=== PATIENT | male | born 1940 | race Caucasian/White ===

== ENCOUNTER 2025-05-07 16:00 | Emergency (ER) | payer MEDICARE, SELFPAY ==
--- NOTE | ~2025-05-07 | XR_ITS ---
XR chest 2V 05/07/2025 16:45 Indication: Cough and shortness of breath Procedure: 2 view chest Comparison: No prior studies for comparison. Findings: Heart size normal. No focal air space disease, pulmonary edema, pleural effusion or suspected pneumothorax. There is nodular opacity overlying the right upper thorax which may represent a summation shadow or parenchymal nodule. The lungs are hyperinflated which is consistent with, but not diagnostic of chronic obstructive pulmonary disease. Impression: 1: No acute cardiopulmonary disease. 2: Nodular opacity right upper thorax which may represent summation shadow parenchymal nodule. Consider follow-up CT chest on a nonemergent basis. Reviewed, dictated and finalized at location O. Impression: 1: No acute cardiopulmonary disease. 2: Nodular opacity right upper thorax which may represent summation shadow pare nchymal nodule. Consider follow-up CT chest on a nonemergent basis.
--- OUTSIDE RECORDS SUMMARY | 2025-05-07 16:08 | XMS_ITS | Encounter Summary ---
Author Organization [facility] Healthcare Address [address] [place] [address] Care Team Providers Care Welder First Class Name Role Phone Dion Esquivel MD Primary Care Provider [phone] Kevin Lynch MD Unavailable [phone] Reason for Visit * Reason Onset Date Comments Dizziness 05/07/2025 Encounter Details Date Type Department Care Team (Late st Contact Info) Description 05/07/2025 Nurse Triage [facility] [address] [facility] [employer] [address] Dion Esquivel MD [address] [place] [address] Social History Tobacco Use Types Packs/Day Years Used Date Smoking Tobacco: Former Cigarettes 2 - 1987 Smokeless Tobacco: Former Chew Quit: 2000 Comments:Smoking History Pac ks/day: 1 Packs Alcohol Use Standard Drinks/Week Comments No 0 (1 standard drink = 0.6 oz pur e alcohol) [facility] Utilities Answer Date Recorded In the past 12 months has [employer], gas, oil, or water [employer] threatened to shut off services in your home? No 11/24/2023 Social Connection and Isolation Panel Answer Date Recorded In a typical week, how many times do you talk on the phone with family, friends, or neighbors? More than three times a week 11/24/2023 How often do you get togethe r with friends or relatives? More than three times a week 11/24/2023 How often do you attend [facility] or christianity services? More than 4 times per year 11/24/2023 Do you belong to any clubs o r organizations such as catholic groups, unions, fraternal or athletic groups, or school groups? No 11/24/2023 How often do you attend meet ings of the clubs or organizations you belong to? Never 11/24/2023 Are you , , di vorced, , never , or living with a partner? 11/24/2023 Overall Financial Resource Strain (CARDIA) Answe r Date Recorded How hard is it for you to pa y for the very basics like food, housing, medical care, and heating? Not very hard 11/24/2023 PHQ-2 Answer Date Recorded PHQ-2 Total Score (If total score is 3 or more points, staff should administer the PHQ-9) 0 12/17/2024 Hunger Vital Sign Answer Date Recorded Within the past 12 months, y ou worried that your food would run out before you got the money to buy more. Never true 11/24/19 24 Within the past 12 months, t he food you bought just didn't last and you didn't have money to get more. Never true 11/24/2023 PRAPARE - Transportation Answer Date Re corded In the past 12 months, has l ack of transportation kept you from medical appointments or from getting medications? No 11/12 In the past 12 months, has l ack of transportation kept you from meetings, work, or from getting things needed for daily living? No 11/24/2023 Housing Stability Vital Sign Answer Grover e Recorded In the last 12 months, was t here a time when you were not able to pay the mortgage or rent on time? No 11/24/2023 In the last 12 months, how many places have you lived? 1 11/24/2023 In the last 12 months, was t here a time when you did not have a steady place to sleep or slept in a prison (including now)? No 11/24/2023 Personal Safety Answer Date Recorded Have you ever been in or are you currently in a harmful physical or emotional relationship or is someone making you feel afraid or unsafe? Denies 11/20/2023 Sex and Gender Information Value Date Recorded Sex Assigned at Not on file Legal Sex Male 11:50 PM STOCK TRADER Gender Identity Not on file Sexual Orientation Not on file documented as of this encounter Miscellaneous Notes * Telephone Encounter - Yuliya Martin RN - 05/07/2025 10:17 AM CDT Reason for Conversation Dizziness Background Pt granddaughter calls , not on HIPAA, pt was added to the call. Pt reports blurry vision at this time, pt states she has been having blurry vision at times for thelast couple of days. Pt also reports feeling dizzy but not in a room is spinning sense. Patient reports he has been having pain in the top of his head for a couple of weeks that comes and goes but recently is getting worse.Pt states he feels he is getting sick, runny nose, congested. Denies confusion, numbness or weakness. Pt has a hx in 2023 of hydrocephalus. Provider contacted via secure chat for ED disposition consult. Recommendation from provider:Proceed to ED Call back with further needs. Disposition Go to ED/UCC Now (or to Office With PCP Approval) Reason for Disposition Patient sounds very sick or weak to the triager No Initial Assessment on file. No Additional Information on file. Protocols Used Neurologic [id number] * Telephone Encounter - Yuliya Martin RN - 05/07/2025 9:53 AM CDT Regarding: headache (moderate to severe), dizziness, Blurred Vision ----- Message from November sent at 05/07/2025 9:38 AM CDT ----- Symptom Based Call Chief Complaint(s): headache (moderate to severe), dizziness, Blurred Vision Duration: 3 days What type of symptom(s) is the patient experiencing? Red Flag. Is the patient concerned they are experiencing a medical emergency requiring an ambulance? No Additional Comments: Jhon Thompson's granddaughter called stating Jhon would like to be seen for headaches that are moderate to severe, they make him have to go lay down. He is also becoming dizzy and having blurred vision. Please contact Donna for further evaluation. Does message need to be routed? Yes-Action Needed documented in this encounter Plan of Treatment Not on file documented as of this encounter Visit Diagnoses Not on filedocumented in this encounter Care Teams Welder First Class Relationship Specialty Start Date End Date Dion Esquivel MD [address] [place] [address] PCP - General 11/11/16 Kevin Lynch MD [address] [place] [address] Consulting Physician Cardiovascular Disease 01/28/21 documented as of this encounter
--- OUTSIDE RECORDS SUMMARY | 2025-05-07 16:08 | XMS_ITS ---
Author Organization [facility] Address [address] [place] [address] Care Team Providers Care Client Relations Representative Name Role Phone Dion Esquivel MD Primary Care Provider [phone] Kevin Lynch MD Unavailable [phone] Active Problems Problem Noted Date Diagnosed Date BMI 28.0-28.9,adult 12/17/2024 BMI 29.0-29.9,adult 04/22/2024 NPH (normal pressure hydrocephalus) 12/12/2023 Assessment & Plan (12/12/2023 6:22 PM CDT): Completed LP inpatient confirming NPH. Has not had outpatient follow up with neurology. Patient states that his children were hesitant to pursue shunt. Recommended that he schedule appointment with Neurology so he and his children can make informed decision and discussed treatment options. Updated referral. Dyslipidemia associated with type 2 diabetes kev litus 12/12/2023 Assessment & Plan (12/17/2024 11:56 AM CDT): LDL=64 Assessment & Plan (04/22/2024 12:17 PM CDT): LDL at goal, continue atorvastatin 20 mg daily Assessment & Plan (12/12/2023 6:23 PM CDT): Results for orders placed or performed in visit on 12/12/23 POCT lipid panel Result Value Ref Range Cholesterol, POC 139 mg/dL HDL, POC 34 mg/dL Triglycerides, POC 132 mg/dL LDL, Direct, POC 79 mg/dL Chol/HDL Ratio, POC 41 Non-HDL Cholesterol, POC 105 mg/dL Cholesterol Total, POC 139 mg/dL POCT hemoglobin A1c Result Value Ref Range Hemoglobin A1C, POC 8.9 % Encounter for annual wellness exam in Medicare p atient 12/12/2023 Assessment & Plan (12/17/2024 11:53 AM CDT): Preventative exam; reviewed screening and vaccinations. Assessment & Plan (12/12/2023 6:24 PM CDT): Preventive exam; reviewed recommended preventive screenings and vaccinations. Encourage annual flu vaccine. CHENTE (acute kidney injury) 11/20/2023 Hypotension 11/20/2023 Chronic obstructive pulmonary disease 11/20/2021 Assessment & Plan (04/22/2024 12:18 PM CDT): Patient states he has been out of his Trelegy inhaler as well as his albuterol inhaler. Has noted mild cough with season change and fall allergies. Refilled inhalers, reviewed maintenance for rescue inhaler use. Patient to notify office if experiencing any shortness of breath, worsening cough or wheezing. Assessment & Plan (11/20/2021 10:15 AM CDT): Sent in: Benzonatate 200 mg t.i.d. part p.r.n. cough, Levaquin 500 mg daily x7 days and prednisone 40 mg burst daily x5 days. Has albuterol inhaler at home that he was instructed to use 2 puffs every 6 hours as needed for cough. Discussed otc to help manage symptoms but he & state that otc does not help him. Reviewed red flags; blood would warrant return to clinic or ED for more emergent evaluation. Syncope and collapse 04/15/2021 Overview (06/20/2024): New Biotronik loop recorder on 20 Dec 2016 ([facility]). Old loop recorder removed at that time. Second loop recorder at [facility] on 07 May 2024. Assessment & Plan (06/20/2024 12:38 PM MATRIX INSPECTOR): We discussed that 2nd loop recorder is at [facility]. He is not having any problems with it so he wants to leave it there. Assessment & Plan (04/25/2023 11:40 AM CDT): Discussed today's loop recorder check. After 6 years in the body, he still has 25% left on the device. Surprising. He had a couple of 3 second pauses in the afternoon in January 2023. He has not had any syncope recently. Today's EKG showed sinus rhythm with no evidence of complete heart block. No pacemaker needed at this time. He is happy to hear that. Assessment & Plan (04/15/2021 3:34 PM CDT): Despite being in the body for 4 years, loop recorder still has several years left. Only abnormality was an episode of bradycardia in the afternoon several months ago. He thought he was sleeping at that time. Loop recorder site looks fine. Chronic systolic congestive heart failure 2020 Overview (06/20/2024): Moderate LV dysfunction on echo 19 Dec 2016. Normal LVEF on echo 31 August 2020 ([facility]). Normal LVEF on echo 13 April 2021 at [facility]. Normal LVEF on echo 01 June 2023. Normal LVEF of 69% on echo 10 Jan 2024. No ischemia on Cardiolite 26 September 2014. On Coreg 3.125 mg b.i.d., empagliflozin 10 mg daily and lisinopril 10 mg daily. Assessment & Plan (06/20/2024 12:41 PM MATRIX INSPECTOR): We discussed initial LV dysfunction about 7 years ago. The last 4 echoes have shown normal LV function. We will get another echocardiogram prior to next office visit in 1 year. Assessment & Plan (04/25/2023 11:41 AM CDT): He has not had any chest pain or shortness of breath walking slowly with a cane. Since the last echo was 2 years ago, we should get another echocardiogram to check on the aortic valve. He is agreeable Assessment & Plan (05/02/2022 11:23 AM CDT): We discussed last echo findings from last year. No troubles with Coreg and lisinopril. Another echocardiogram would be useful and he is agreeable. No change in cardiac regimen at this time. Assessment & Plan (04/15/2021 3:34 PM CDT): Patient does not have any chest pain or shortness of breath. We discussed LV function which has now normalized. I did not make any change on the low-dose Coreg and lisinopril. I advised him to follow-up with us regularly however. Valvular heart disease 04/15/2021 Overview (06/20/2024): Mild (possibly worse)/mild MR on echo 19 Dec 2016. Mild MR/aortic valve sclerosis on echo 31 August 2020 ([facility]). Mild on echo 13 April 2021 ([facility]). Mild on echo 01 June 2023. Mild on echo 10 Jan 2024. LVEF of 69%. Assessment & Plan (06/20/2024 12:40 PM MATRIX INSPECTOR): We discussed last echo result from 6 months ago. He is not having any chest pain or shortness of breath, but we should get an echocardiogram next year to follow-up on his aortic stenosis. Assessment & Plan (04/25/2023 11:41 AM CDT): Discussed mild aortic stenosis noted on last echo 2 years ago. Will check another echo now. Assessment & Plan (05/02/2022 11:22 AM CDT): We discussed echo findings from last year. Another echocardiogram would be useful and he is agreeable. 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 Acute tympanomastoiditis of left side 10/29/2020 Assessment & Plan (10/29/2020 11:08 PM CDT): Finish off the ear drops into the Left ear twice daily Avoid ear cleaning techniques Avoid water to ears May restart left ear hearing aid [address] minutes [address] ear drops [address] temporal bones call with results Otorrhea of left ear 10/08/2020 Assessment & Plan (10/29/2020 4:24 PM CDT): Finish off the ear drops into the Left ear twice daily Avoid ear cleaning techniques Avoid water to ears May restart left ear hearing aid 20 minutes after ear drops CT temporal bones call with results Assessment & Plan (10/08/2020 4:57 PM MATRIX INSPECTOR): Ciprofloxacin ear drops to left ear followed by Dexamethasone ear drops to left ear twice daily for 10 days Cipro tablets with a meal twice daily Culture obtained today and may switch up medication based on these results Consider CT temporal bone once infection has cleared Avoid ear cleaning techniques Avoid water to ears Have hearing aid cleansed and avoid wearing this until infection has cleared Malignant neoplasm of urinary bladder 09/10/2020 Chronic bronchitis 09/10/2020 Current moderate episode of major depressive dis order 09/10/2020 Acute on chronic diastolic heart failure 021 Stage 3 chronic kidney disease 08/29/2020 Hypertension associated with diabetes 04/02/2020 Assessment & Plan (12/12/2023 10:09 AM CDT): No further syncopal episodes, continues midodrine. Has not had any BP readings >130. Encouraged patient to schedule hospital follow up with cardiology. Assessment & Plan (04/02/2020 10:52 AM CDT): The blood pressure is under good control. Ideally it should be under 130/80. Continue medications without adjustment. Continue efforts to eat well (4-5 fruits and veggies) daily and exercise for about 30 min nearly every day. Watch salt intake, keeping to less than 2000mg per day. Limit alcohol. Include strategies to cope with stress. Elevated LDL cholesterol level 04/02/2020 Overview (06/20/2024): LDL of 157 mg/dL on 18 August 2020. LDL of 77 mg/dL on 30 November 2020. LDL of 73 mg/dL on 30 March 2021. LDL of 48 mg/dL on 12 May 2023. LDL of 69 mg/dL on 17 April 2024. On Lipitor 20 mg p.o. q.d.. Assessment & Plan (06/20/2024 12:39 PM MATRIX INSPECTOR): We discussed LDL cholesterol goal of less than 100 mg/dL. He has been at goal since 2020. No change in medical regimen here. Assessment & Plan (05/02/2022 11:22 AM CDT): We discussed LDL cholesterol goal of less than 100 mg/dL. He has been at goal since last year. Another lipid panel would be useful. No change in Lipitor dose at this time. Assessment & Plan (04/02/2020 10:53 AM CDT): Patient should focus on limiting bad fats in the diet and using exercise as a way to improve the lipid status. Secondary prevention. Reviewed medications. Denies any statin Ses. Reviewed diet/exercise recommendations. Reviewed red flags. Upper respiratory tract infection 08/02/2019 Assessment & Plan (08/02/2019 6:29 PM MATRIX INSPECTOR): Will complete prednisone & levaquin that were sent last week by Dr Esquivel. Discussed need for expectorant ie: mucinex to help get out phlegm. To call if no improvement or if worsening (has improved at this point). Diabetic eye exam 08/01/2019 Assessment & Plan (08/02/2019 6:28 PM MATRIX INSPECTOR): [facility] for DM eye exam. Poor sleep pattern 08/01/2019 Assessment & Plan (08/01/2019 3:45 PM MATRIX INSPECTOR): Will stop taking levemir at 0300 (as he had been at hospital). Will start taking at HS. Type 2 diabetes mellitus wit h hyperglycemia, with long-term current use of insulin 06/26/2019 Overview (06/26/2019): labs entered to have completed to 07/16/[address] Esquivel. Assessment & Plan (12/17/2024 11:46 AM CDT): Lab Results Component Value Date HGBA1C 8.6 (H) 04/17/2024 HGBA1C 8.9 12/12/2023 HGBA1C 10.4 (H) 05/12/2023 Current medications: Metformin 500 mg b.i.d. Jardiance 10 mg daily Levemir 25 units nightly Assessment & Plan (04/22/2024 12:16 PM CDT): Lab Results Component Value Date HGBA1C 8.6 (H) 04/17/2024 HGBA1C 8.9 12/12/2023 HGBA1C 10.4 (H) 05/12/2023 A1c is improving some. Will add Jardiance 10 mg daily and continue metformin as well as Lantus. If unable to get Jardiance approve will plan to increase Lantus from 24 units to 26 units nightly. Patient to continue checking blood sugars at home. Current on eye exam. Assessment & Plan (12/12/2023 9:59 AM CDT): A1c=8.9% Metformin 500 mg twice daily. Levemir 21 units nightly, will increase to 24 units. Assessment & Plan (04/02/2020 10:51 AM CDT): Lab Results Component Value Date HGBA1C 7.1% 04/02/2020 HGBA1C 7.4 (H) 11/18/2019 HGBA1C 9.6 (H) 07/09/2019 Improved A1c. Reviewed dietary/exercise recommendations. Instructed to perform daily foot check. Reviewed medication side effects & scheduling. To check/record FSBS & bring to appointments. Labs ordered; will call with results when received. To make follow up appointment in 3-6 months. Reviewed red flags; what would warrant further evaluation. Assessment & Plan (08/02/2019 6:28 PM MATRIX INSPECTOR): Discussed levemir dosing w/Mr & Mrs Morgan. Aware that current prednisone will increase his BG levels. Will wait until he is off of prednisone x1-2 weeks to determine if downward titration necessary. Will continue to monitor BG levels. Will continue to take levemir 32 units QHS. Reviewed BG goals. Reviewed red flags; what would warrant call or RTC. Hypothyroidism 06/26/2019 Overview (06/26/2019): labs entered to have completed to 07/16/[address] Esquivel. Assessment & Plan (12/17/2024 12:06 PM CDT): Levothyroxine mcg daily. Will check TSH/T4 and make changes as needed. Lab Results Component Value Date TSH 5.02 (H) 04/17/2024 TSH 7.38 (H) 11/22/2023 TSH 5.51 (H) 05/12/2023 Assessment & Plan (04/22/2024 12:17 PM CDT): Levothyroxine 50 mcg daily. No changes made today. T4 within normal range Lab Results Component Value Date TSH 5.02 (H) 04/17/2024 TSH 7.38 (H) 11/22/2023 TSH 5.51 (H) 05/12/2023 Assessment & Plan (12/12/2023 9:38 AM CDT): Levothyroxine 50 mcg daily. Will check TSH/T4 and make changes as needed. Lab Results Component Value Date TSH 7.38 (H) 11/22/2023 TSH 5.51 (H) 05/12/2023 TSH 4.11 03/30/2021 Refused influenza vaccine 06/25/2019 Assessment & Plan (06/26/2019 8:02 AM MATRIX INSPECTOR): Declines at this time; will rtc w/ when he is feeling better. Simple chronic bronchitis 12/29/2014 Overview (11/18/2016): Chronic airway obstruction, not elsewhere classified Assessment & Plan (12/12/2023 6:22 PM CDT): Continues maintenance inhaler, Trelegy. Has not required use of albuterol. Lungs clear on exam. Assessment & Plan (06/26/2019 8:02 AM MATRIX INSPECTOR): COPD w/acute exacerbation at this time. levaquin 500mg daily x10 & prednisone taper sent as well as refill on albuterol sulfate. Uses albuterol nebs q4hr when home. To p/u otc mucinex (no D or DM product) & take per box directions. Ensure adequate hydration to thin secretions also. Reviewed red flags; what would warrant rtc or ED for more emergent eval. Malignant neoplasm of prostate 12/29/2014 Overview (11/18/2016): Prostate cancer Current Treatment and Therapy Plans No current plan information found. Past Treatment and Therapy Plans No past plan information found. Lifetime Dose Tracking * Chemical Lifetime Dose Automatic Entry Manual Entr y Fluoro Time 0.453 minutes 0.453 minutes 0 minutes Air kerma at the reference point (Ka,r) 15.849 mGy 1 5.849 mGy 0 mGy Resolved Problems Problem Noted Date Diagnosed Date Resolved Date Syncope 11/20/2023 11/20/2023 Acute diffuse otitis externa of left ear 04/02/2020 12/24/2020 Assessment & Plan (04/02/2020 10:56 AM CDT): Culture collected. Will call w/results once rec'd. ciprodex sent. Reviewed ear gtt instillation. Discussed/suggested ENT but declined at this time. Relates bad experience w/doctor at 17 y/o & does not wish to return. Reviewed red flags; what would warrant rtc or ED for more emergent eval. Drainage from left ear 04/02/202012/24 Assessment & Plan (04/02/2020 10:56 AM CDT): Culture collected. Will call w/results once rec'd. ciprodex sent. Reviewed ear gtt instillation. BMI 33.0-33.9,adult 04/02/2020 12/12/19 24 Assessment & Plan (04/02/2020 10:55 AM CDT): Reviewed need to lose weight, reviewed health benefits. Reviewed recommendations for daily intake & activity 20-30 minutes/day. Discussed healthy diet and importance of regular physical activity. BMI 34.0-34.9,adult 08/01/2019 12/12/19 24 Assessment & Plan (08/02/2019 6:28 PM MATRIX INSPECTOR): Reviewed need to lose weight, reviewed health benefits. Reviewed recommendations for daily intake & activity 20-30 minutes/day. Discussed healthy diet and importance of regular physical activity. Type 2 diabetes mellitus with hyperlipidemia 9 04/02/2020 Overview (06/26/2019): labs entered to have completed to 07/16/[address] Esquivel. Ear discharges/bleeding, left 07/22/2017 06/26/2019
--- OUTSIDE RECORDS SUMMARY | 2025-05-07 16:08 | XMS_ITS | Clinical Summary ---
Author Organization [facility] Address [address] [place] [address] Phone Care Team Providers Care Liner Inserter Name Role Phone Dion Esquivel MD Primary Care Provider [phone] Allergies Active Allergy Reactions Criticality Noted Date Comments Penicillins Hives High 04/09/2021 Medications aspirin (ECOTRIN EC) 81 mg Tablet, Delayed Release (E.C.) Take 81 mg by mouth daily. Active albuterol sulfate 90 mcg/actuation aero powdr breath act w/sensor Take by inhalation. Active benzonatate (TESSALON) 200 mg capsule Take 200 mg by mouth 3 times daily. Active budesonide-form oteroL (SYMBICORT) 160-4.5 mcg/actuation HFA Aerosol Inhaler Take 2 Puffs by inhalation 2 times daily. Active carvediloL (COREG) 3.125 mg tablet Take 3.125 mg by mouth 2 times daily with meals. Active clotrimazole-be tamethasone (LOTRISONE) 1-0.05 % Cream Apply to affected area 2 times daily. Active levothyroxine 50 mcg tablet Take 50 mcg by mouth daily in the morning. Active lisinopriL (PRINIVIL) 10 mg tablet Take 10 mg by mouth daily. Active metFORMIN (GLUCOPHAGE) 500 mg tablet Take 500 mg by mouth 2 times daily with meals. Active tiotropium (SPIRIVA) 18 mcg capsule Take 18 mcg by inhalation daily. Active atorvastatin (LIPITOR) 20 mg tablet Take 20 mg by mouth daily. Active CYANOCOBALAMIN, VITAMIN B-12, ORAL Take by mouth. Activ e levothyroxine 50 mcg tablet Take 50 mcg by mouth daily in the morning. Active insulin detemir U-100 (Levemir FlexTouch U-100 Insuln) 100 unit/mL pen syringe Inject by subcutaneous injection daily at bedtime. 25 units daily at bedtime Active mirabegron (MYRBETRIQ) 50 mg Extended Release 24 hour tablet Take 50 mg by mouth daily. Active theophylline (MEI-24) 400 mg Extended Release 24 hour capsule Take 400 mg by mouth every 24 hours. Active fluticasone-ume clidinium-vilan terol (Trelegy Ellipta) 100-62.5-25 mcg Disk with Device Take 1 Puff by inhalation daily. Active solifenacin (VESIcare) 5 mg TabletIndicatio ns:OAB (overactive bladder) Take 1 Tablet (5 mg) by mouth daily. 30 Tablet 3 Active tamsulosin (FLOMAX) 0.4 mg capsuleIndicati ons:Benign prostatic hyperplasia with urinary frequency TAKE 1 CAPSULE BY MOUTH ONCE DAILY WITH SUPPER 30 Capsule 5 Active Active Problems No known active problems Encounters Date Type Department Care Team Description 04/29/2025 External Device Data ST[facility] ABSTRACTION Provider, Abstract 04/29/2025 External Device Data [facility] ABSTRACTION Provider, Abstract 04/01/2025 External Device Data [facility] ABSTRACTION Provider, Abstract 04/01/2025 External Device Data ST[facility] ABSTRACTION Provider, Abstract 03/19/2025 External Device Data ST[facility] ABSTRACTION Provider, Abstract 03/18/2025 External Device Data ST[facility] ABSTRACTION Provider, Abstract 02/26/2025 External Device Data [facility] ABSTRACTION Provider, Abstract 02/25/2025 External Device Data STL ABSTRACTION Provider, Abstract 02/25/2025 Refill [facility] Medicine [address] [place] [address] Darline Chavez MD Benign prostatic hyperplasia with urinary frequency from Last 3 Months Social History Tobacco Use Types Packs/Day Years Used Date Smoking Tobacco: Former Cigarettes 1.5 30 0 04/09/1960 - 04/09/1990 Smokeless Tobacco: Former Chew Tobacco Cessation:Counseling Given: No Alcohol Use Standard Drinks/Week Comments Not Currently 0 (1 standard drink = 0.6 oz pur e alcohol) Sex and Gender Information Value Date Recorded Sex Assigned at Not on file Legal Sex Male 3:35 PM CDT Gender Identity Not on file Sexual Orientation Not on file Last Filed Vital Signs Vital Sign Reading Time Taken Comments Blood Pressure 130/62 05/26/2023 9:58 AM CDT Pulse 56 05/04/2021 11:07 AM CDT Temperature 36.7 C (98 F) 01/17/2022 11:08 AM CDT Respiratory Rate 18 06/10/2024 11:30 AM CDT Oxygen Saturation 97% 05/04/2021 11:07 AM CDT Inhaled Oxygen Concentration - - Weight 86.2 kg (190 lb) 06/10/2024 11:30 AM CDT Height 162.6 cm (5' 4) 06/10/2024 11:30 AM CDT Body Mass Index 32.61 06/10/2024 11:30 AM CDT Plan of Treatment Upcoming Encounters Date Type Department Care Team (Late st Contact Info) Description 06/12/2025 10:00 AM CDT Office Visit [facility] Medicine [address] [place] [address] Darline Chavez MD [address] [place] [address] Health Maintenance Due Date Last Done Comments DIABETES ANNUAL RETINAL EXAM 1959 DIABETES MICROALBUMIN ANNUAL SCREEN 1959 LDL CHOLESTEROL ANNUAL 1959 DTAP/TDAP/TD VACCINES (1 - Tdap) 1960 ZOSTER VACCINE (2 of 3) 04/13/2015 02/16/2015 RSV VACCINE (60+ or ) (1 - 1-dose 75+ series) 2016 DIABETES HBA1C Q 6 MONTHS 10/15/20242023, 05/12/2023, 10/06/2021, Additional history exists DIABETES ANNUAL FOOT EXAM 12/11/2024 12/12/2023 INFLUENZA VACCINE (#1) 2025 , 05/09/2022, 07/22/2020, Additional history exists COVID-19 Vaccine (2024-2 6 season) 2025 07/24/2021, 11/07/2020, 10/10/2020 PNEUMOCOCCAL VACCINE 50+ YEARS Completed 1 08/25/2015, 03/31/2015, 02/16/2015 Medical Devices Implanted Type Area Program Development Specialist Device Identifier Shelf Expiration Date Model / Serial / Lot Ilr Insurance AETNA PPO MCR Care Teams Liner Inserter Relationship Specialty Start Date End Date Dion Esquivel MD PCP - General Family Practice 04/07/21
--- OUTSIDE RECORDS SUMMARY | 2025-05-07 16:09 | XMS_ITS | Clinical Summary ---
Author Organization [facility] Address [address] [place] [address] Care Team Providers Care Airport Operations Officer Name Role Phone Dion Esquivel MD Primary Care Provider [phone] Kevin Lynch MD Unavailable [phone] Allergies Active Allergy Reactions Criticality Noted Date Comments Penicillins Rash,Hives,Urticaria High 02/08/2012 Reaction: RASH/HIVES, , Reaction: RASH, HIVES, Codeine-Guaifenesin Mental status changes Low 06/26 Medications lancets (onetouch ultrasoft) misc test blodd sugar twice daily 250.00 1 3 015 Active blood-glucose meter (ONETOUCH ULTRA SYSTEM KIT) kit test blood sugar twice daily 250.00 1 kit 0 015 Active pen needle, diabetic 31 gauge x 5/16 needleIndicatio ns:Type 2 diabetes mellitus without complication, with long-term current use of insulin (HCC) Use to inject 1 to 4 times daily as directed 100 each 3 020 Active cyanocobalamin (Vitamin B-12) 1,000 mcg tabletIndicatio ns:Prevention of Vitamin B12 Deficiency Take 1 tablet (1,000 mcg total) by mouth daily as needed Active OneTouch Verio test strips strip USE 1 STRIP TO CHECK GLUCOSE TWICE DAILY 200 each 021 Active acetaminophen (TYLENOL) 500 mg tablet Take 1 tablet (500 mg total) by mouth every 6 (six) hours as needed for pain Active Levemir FlexPen 100 unit/mL (3 mL) pen for injection INJECT 25 UNITS SUBCUTANEOUSLY ONCE DAILY IN THE EVENING 15 mL 023 Active solifenacin (VESIcare) 5 mg tablet Take 1 tablet (5 mg total) by mouth daily Active tamsulosin (FLOMAX) 0.4 mg extended release capsule Take 1 capsule (0.4 mg total) by mouth daily Active inhalational spacing device (Aerochamber MV) spacerIndicatio ns:COPD exacerbation (HCC) Use with albuterol inhaler 1 each Active albuterol 2.5 mg /3 mL (0.083 %) nebulizer solutionIndicat ions:COPD exacerbation (HCC) Take 3 mL (2.5 mg total) by nebulization every 6 (six) hours as needed for wheezing 75 mL Active aspirin 81 mg enteric coated tablet Take 1 tablet (81 mg total) by mouth every morning 024 2030 Active midodrine (PROAMATINE) 5 mg tablet Take 1 tablet (5 mg total) by mouth 3 (three) times a day Active fluticasone propionate (FLONASE) 50 mcg/actuation nasal sprayIndication s:Seasonal allergic rhinitis, unspecified trigger Administer 2 sprays into each nostril daily 3 each 4 Active cetirizine (ZyrTEC) 10 mg tabletIndicatio ns:Seasonal allergic rhinitis, unspecified trigger Take 1 tablet (10 mg total) by mouth daily as needed for allergies 90 tablet 4 Active Trelegy Ellipta 100-62.5-25 mcg inhalerIndicati ons:Chronic obstructive pulmonary disease, unspecified COPD type (HCC) Inhale 1 puff daily 180 each 1 024 Active albuterol HFA (Ventolin HFA) 90 mcg/actuation inhalerIndicati ons:Bronchospas m Prevention Inhale 1-2 puffs every 6 (six) hours as needed for wheezing 1 each 6 024 Active metFORMIN (GLUCOPHAGE) 500 mg tabletIndicatio ns:Type 2 diabetes mellitus with hyperglycemia, with long-term current use of insulin (HCC) Take 1 tablet (500 mg total) by mouth 2 (two) times a day with meals 180 tablet 3 024 Active atorvastatin (LIPITOR) 20 mg tabletIndicatio ns:Dyslipidemia associated with type 2 diabetes mellitus (HCC) Take 1 tablet (20 mg total) by mouth daily 90 tablet 3 024 Active lisinopriL (PRINIVIL,ZESTR IL) 10 mg tabletIndicatio ns:Hypertension associated with diabetes (HCC) Take 1 tablet (10 mg total) by mouth daily 90 tablet 3 024 Active ofloxacin (FLOXIN) 0.3 % otic solutionIndicat ions:Otitis Externa Administer 5 drops into the right ear daily 5 mL 1 025 Active Myrbetriq 50 mg tablet extended release 24 hr Take 1 tablet by mouth once daily 50 tablet 025 Active Jardiance 10 mg tablet Take 1 tablet by mouth once daily 90 tablet 025 Active levothyroxine (SYNTHROID) 50 mcg tablet Take 1 tablet by mouth once daily 90 tablet 025 Active theophylline (UNIPHYL) 400 mg 24 hr tablet Take 1 tablet by mouth once daily 90 tablet 1 025 Active carvediloL (COREG) 3.125 mg tablet TAKE 1 TABLET BY MOUTH TWICE DAILY WITH MEALS 180 tablet 025 Active carvediloL (COREG) 3.125 mg tablet TAKE 1 TABLET BY MOUTH TWICE DAILY WITH MEALS 180 tablet 025 2024 Discontinued Active Problems Problem Noted Date Diagnosed Date [...] at that time. Second loop recorder at [facility] on 07 May 2024. Assessment & Plan (06/20/2024 12:38 PM REQUIREMENTS ANALYST): We discussed that 2nd loop recorder is [...] Normal LVEF on echo 31 August 2020 ([facility]). Normal LVEF on echo 13 April 2021 at [facility]. Normal LVEF on echo 01 June 2023. Normal LVEF of 69% on echo 10 Jan 2024. No ischemia on Cardiolite 26 September 2014. On Coreg 3.125 mg b.i.d., empagliflozin 10 mg daily and lisinopril 10 mg daily. Assessment & Plan (06/20/2024 12:41 PM REQUIREMENTS ANALYST): We discussed initial LV dysfunction about 7 [...] 69%. Assessment & Plan (06/20/2024 12:40 PM REQUIREMENTS ANALYST): We discussed last echo result from 6 [...] results Assessment & Plan (10/08/2020 4:57 PM REQUIREMENTS ANALYST): Ciprofloxacin ear drops to left ear followed [...] q.d.. Assessment & Plan (06/20/2024 12:39 PM REQUIREMENTS ANALYST): We discussed LDL cholesterol goal of less [...] 08/02/2019 Assessment & Plan (08/02/2019 6:29 PM REQUIREMENTS ANALYST): Will complete prednisone & levaquin that were sent last week by Dr Esquivel. Discussed need for expectorant ie: mucinex to help get out phlegm. To call if no improvement or if worsening (has improved at this point). Diabetic eye exam 08/01/2019 Assessment & Plan (08/02/2019 6:28 PM REQUIREMENTS ANALYST): Referral to [facility] for DM eye exam. Poor sleep pattern 08/01/2019 Assessment & Plan (08/01/2019 3:45 PM REQUIREMENTS ANALYST): Will stop taking levemir at 0300 (as [...] evaluation. Assessment & Plan (08/02/2019 6:28 PM REQUIREMENTS ANALYST): Discussed levemir dosing w/Mr & Mrs Cathy. Aware that current prednisone will increase his [...] have completed to 07/16/[address] Eqsuivel. Assessment & Plan (12/17/2024 12:06 PM CDT): [...] 06/25/2019 Assessment & Plan (06/26/2019 8:02 AM REQUIREMENTS ANALYST): Declines at this time; will rtc w/ when he is feeling better. Simple chronic bronchitis 12/29/2014 Overview (11/18/2016): Chronic airway obstruction, not elsewhere classified Assessment & Plan (12/12/2023 6:22 PM CDT): Continues maintenance inhaler, Trelegy. Has not required use of albuterol. Lungs clear on exam. Assessment & Plan (06/26/2019 8:02 AM REQUIREMENTS ANALYST): COPD w/acute exacerbation at this time. levaquin [...] of prostate 12/29/2014 Overview (11/18/2016): Prostate cancer Resolved Problems Problem Noted Date Diagnosed Date [...] 24 Assessment & Plan (08/02/2019 6:28 PM REQUIREMENTS ANALYST): Reviewed need to lose weight, reviewed health benefits. Reviewed recommendations for daily intake & activity 20-30 minutes/day. Discussed healthy diet and importance of regular physical activity. Type 2 diabetes mellitus with hyperlipidemia 9 04/02/2020 Overview (06/26/2019): labs entered to have completed to 07/16/[address] Esquivel. Ear discharges/bleeding, left 07/22/2017 06/26/2019 Encounters Date Type Department Care Team Description 05/07/2025 Nurse Triage [facility] [address] [address] Dino Esquivel MD from Last 3 Months Immunizations Immunization Administration Dates Next Due Influenza, Quadrivalent, Hig h Dose, Preservative Free, Intrr 05/12/2023,05/09/2022,07/22/2020 Influenza, Quadrivalent, Spl it, Preservative Free, Intramuscular 04/10/2015 Influenza, Split 06/28/2013 Influenza, Trivalent, High D ose, Split, Preservative Free, Intramuscular 07/18/2019,06/02/2018,06/25/2016 Influenza, Trivalent, IM (MDV) 05/14/2016,2012 Influenza, Trivalent, Preser vative Free, Intramuscular 03/31/2015 Influenza, Unspecified 05/14/2024(Deferr ed: Patient Refused),04/22/2024(Deferred: Patient Refused),05/09/2022(Deferred: Patient Refused),06/04/2021,07/22/2020, 019(Deferred: Patient ill today),06/25/2019(Deferred: Patient Refused),08/14/2018(Deferred: Patient Refused),08/21/2017(Deferred: Patient Refused) Pfizer SARS-CoV-2 Monovalent Vaccination (12+ Yrs) PURPLE 07/24/2021,11/07/2020,10/10/2020 Pneumococcal Conjugate PCV 13 03/31/2015, 015,02/16/2015 Pneumococcal Polysaccharide PPV23 06/25/2016,07/2016 ZOSTER LIVE 02/16/2015,02/16/2015 Surgical History Surgery Date Site/Laterality Comments 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 17 yrs old PROSTATE SURGERY EYE SURGERY 08/14/2020 - 08/13/2021 cataract [place] FLUORO GUIDED LUMBAR PUNCTURE 11/22/2023 Right Medical History Medical History Date Comments Hx Other Medical syncope / atypi ibeth loc. Chronic obstructive pulmonary disease COPD Hx Other Medical Diabetes; Outco me: improved Malignant neoplasm of prostate (HCC) Cancer, prostate; Comments: TETO 11/24/2014 -tx starts 12/03/14 Bladder tumor Motion sickness Syncope GERD (gastroesophageal reflux disease) Type 2 diabetes mellitus Frequent urination Hypothyroidism Arthritis RAMONA (hard of hearing) History of radiation therapy 2015 pro state Family History Medical History Relation Name Comments COPD Father COPD; Other Father Cancer, basal c ell; Stroke Father Stroke; Stroke Mother Stroke; Heart attack Other Family history of Myocardial infarction; Anesthesia problems Neg Hx Relation Name Status Comments Father Mother Other Social History Tobacco Use Types Packs/Day Years Used Date Smoking Tobacco: Former Cigarettes 2 29 1 959 - 1987 Smokeless Tobacco: Former Chew Quit: 2000 Tobacco Cessation:Counseling Given: Not Answered Comments:Smoking History Packs/day: 1 Packs Alcohol Use Standard Drinks/Week Comments No 0 (1 standard drink = 0.6 oz pur e alcohol) [facility] Utilities Answer Date Recorded In the past 12 months has [employer], gas, oil, or water [employer]quee threatened to shut off services in your [...] week 11/24/2023 How often do you attend chur or methodist services? More than 4 times per year 11/24/2023 Do you belong to any clubs o r organizations such as latter day groups, unions, fraternal or athletic groups, or [...] place to sleep or slept in a senior care (including now)? No 11/24/2023 Personal Safety Answer Date Recorded Have you ever been in or are you currently in a harmful physical or emotional relationship or is someone making you feel afraid or unsafe? Denies 11/20/2023 Sex and Gender Information Value Date Recorded Sex Assigned at Not on file Legal Sex Male 11:50 PM REQUIREMENTS ANALYST Gender Identity Not on file Sexual Orientation Not on file Obstetrics History Last Filed Vital Signs Vital Sign Reading Time Taken Comments Blood Pressure 110/72 12/17/2024 11:30 AM CDT Pulse 83 12/17/2024 11:30 AM CDT Temperature 36.8 C (98.3 F) 12/17/2024 11:30 AM CDT Respiratory Rate 18 12/17/2024 11:30 AM CDT Oxygen Saturation 96% 12/17/2024 11:30 AM CDT Inhaled Oxygen Concentration - - Weight 76.7 kg (169 lb) 12/17/2024 11:30 AM CDT Height 162.6 cm (5' 4.02) 12/17/2024 11:30 AM C DT Body Mass Index 28.99 12/17/2024 11:30 AM CDT Plan of Treatment Health Maintenance Due Date Last Done Comments DTaP/Tdap/Td Vaccine (1 - Tdap) 1951 Hepatitis B Screening 1958 Zoster Vaccine (2 of 3) 04/13/2015 02/16/2015, 02/16 Foot Exam 12/11/2024 12/12/2023, 07/18/2019 Dilated Eye Exam 04/05/2025 04/05/2024, 07/2022, 10/17/2020, Additional history exists Covid-19 Vaccine (2024-2 6 season) 2025 07/24/2021, 11/07/2020, 10/10/2020 Influenza Vaccine (#1) 2025 , 05/09/2022, 06/04/2021, Additional history exists Albumin Creatinine Ratio, Urine 04/17/2025 04/17/2024, 05/12/2023, 03/30/2021, Additional history exists eGFR 04/17/2025 04/17/2024, 11/12, 11/22/2023, Additional history exists Hemoglobin A1C 06/19/2025 12/17/2024, 11/2023, 12/12/2023, Additional history exists Depression Screening 12/17/2025 12/17/2024, 04/22/2024, 12/12/2023, Additional history exists Fall Risk Assessment 12/17/2025 12/17/2024, 04/22/2024, 12/12/2023, Additional history exists Lipid Panel 12/17/2025 12/17/2024, 11/2023, 12/12/2023, Additional history exists Well Visit 65+ 12/17/2025 12/17/2024, 11/14, 05/12/2023, Additional history exists Pneumococcal vaccine 65+ Completed 016, 06/25/2016, 03/31/2015, Additional history exists Abdominal Aortic Aneurysm (A AA) Screen Completed 05/12/2020 Medical Devices Implanted Type Area Rampman Device Identifier Shelf Expiration Date Model / Serial / Lot Heart Monitor-08/19/19 18 Implanted:01/2018 (Quantity not on file) Other - see comments Chest Description:Heart monitor AM H [employer] [address] 3mm 3-7mm Total Center Shoe Ear Prosthesis Ossicular - S0 - [id number] Implanted:Qty: 1 on 09/14/2021 by Jefferson Crowder MD at [facility] Left: Ear [employer] 01/08/2026 605 / [id number] / [id number] Procedures Procedure Name Priority Date/Time Associated Diagnosis Comments POCT HEMOGLOBIN A1C Routine 12/17/2024 1 1:45 AM CDT Type 2 diabetes mellitus with hyperglycemia, with long-term current use of insulin (HCC) POCT LIPID PANEL Routine 12/17/2024 11:4 5 AM CDT Dyslipidemia associated with type 2 diabetes mellitus (HCC) EGFR Routine 04/17/2024 9:52 AM CDT Dyslipidemia associated with type 2 diabetes mellitus (HCC) ALBUMIN CREATININE RATIO, URINE Routine 04/17/2024 9:52 AM CDT Type 2 diabetes mellitus with hyperglycemia, with long-term current use of insulin (HCC) HM DIABETES EYE EXAM Routine 04/05/2024 9:59 AM CDT from Last 3 Months or Most Recently Relevant to Health Maintenance Results * (ABNORMAL) POCT hemoglobin A1c (12/17/2024 11:45 AM CDT) Hemoglobin A1C, POC 8.1(A) 4.0 - 5.6 % Capillary blood 12/17/2024 1 1:45 AM CDT us Ysabel Hylton NP POINT OF CARE TEST ORDERABL ES Final Result * (ABNORMAL) POCT lipid panel (12/17/2024 11:45 AM CDT) Cholesterol, POC 124 <200 MG/DL Comment:KVE=[id number] HDL, POC 33(A) >=40 mg/dL Triglycerides, POC 134 <=149 mg/dL LDL Cholesterol POC 64 <=129 mg/dL Chol/HDL Ratio, POC 3.7 NONE Non-HDL Cholesterol, POC 91 NONE mg/dL Cholesterol Total, POC 124 30 - 199 mg/dL Capillary blood 12/17/2024 1 1:45 AM CDT us Ysabel Hylton NP POINT OF CARE TEST ORDERABL ES Final Result * eGFR (04/17/2024 9:52 AM CDT) eGFR 62 >=60 mL/min/1. 73 m2 Comment: Interpretive Data Reference Interval Normal >/= 90 mL/min/1.73m2 Mildly decreased* 60 - 89 mL/min/1.73m2 Mildly to moderately decreased 45 - 59 mL/min/1.73m2 Moderately to severely decreased 30 - 44 mL/min/1.73m2 Severely decreased 15 - 29 mL/min/1.73m2 Kidney Failure < 15 mL/min/1.73m2 *Relative to young adult level Estimated glomerular filtration rate is determined by the 2020 CKD-EPI equation recommended by the National Kidney Foundation (A Unifying Approach to GFR Estimation: Recommendations of the NKF-ASK Task Force on Reassessing the Inclusion of Race in Diagnosing Kidney Disease, JASN 2020). The CKD-EPI equation should not be used for patients with unstable renal function and has not been validated in children and those over 70. Current interpretive data was last reviewed 2021. Testing performed by: [facility], [address] [place] [address], [place]., [id number] Blood 04/17/2024 9:52 AM CDT 04/17/2024 12:35 PM CDT Ysabel Hylton NP LAB BLOOD ORDERABLES Final Result Performing Organization Address [facility] Co de Phone Number CYRUS KATHLEEN (JOSE R) [address] [place] [address] * (ABNORMAL) Albumin Creatinine Ratio, Urine (04/17/2024 9:52 AM CDT) Albumin Ur 42.1 mg/L Comment: Interpretive Data No reference range established. Current interpretive data was last revised 2018. Testing performed by: [facility], [address] [place] [address]., [id number] Creatinine Ur 84.9 mg/dL [facility] (JOSE R) Comment: Interpretive Data No reference range established. Current interpretive data was last revised 2018. Testing performed by: [facility], [address] [place] [address]., [id number] Albumin Creatinine Ratio, Ur 50(H) 1 - 29 mg/g [facility] (JOSE [facility]) Comment:Testing performed by : [facility], [address] [place] [address]., [id number] Urine 04/17/2024 9:52 AM CDT 04/17/2024 12:20 PM CDT Ysabel Hylton NP LAB URINE ORDERABLES Final Result Performing Organization Address [facility] Co de Phone Number CYRUS KATHLEEN (JOSE R) [address] [facility] [place] [address] * DIABETES EYE EXAM (04/05/2024 9:59 AM CDT) SCRIBED DIABETIC DILATED EYE EXAM Normal Historical Provider HEALTH MAINTENANCE Final Result from Last 3 Months or Most Recently Relevant to Health Maintenance Insurance [facility] MEDICARE AETNA MEDICARE AETNA MEDICARE Advance Directives For more information, please contact: [phone] Documents on File Type Date Recorded Patient Bricklayer Sewer Expl anation ADVANCE DIRECTIVE 06/16/2022 1:49 PM POLST - Phys Order for PT Preferences * Full Code (Latest Code Status on File) Date Activated Date Inactivated Comments 11/20/2023 5:17 PM 11/23/2023 8:08 PM Care Teams Airport Operations Officer Relationship Specialty Start Date End Date Dion Esquivel MD [address] [place] [id number] PCP - General 11/11/16 Kevin Lynch MD [address] [place] [address] Consulting Physician Cardiovascular Disease 01/28/21
--- OUTSIDE RECORDS SUMMARY | 2025-05-07 16:09 | XMS_ITS | Encounter Summary ---
Author Organization [facility] Address [address] [place] [address] Phone Care Team Providers Care Carbon Sequestration Plant Engineer Name Role Phone Dion Esquivel MD Primary Care Provider [phone] Encounter Details Date Type Department Care Team (Late st Contact Info) Description 12/15/2020 Transcribe Orders [facility] [address] [place] [address] Darline Chavez MD [address] [facility] [address] [place] [address] Social History Tobacco Use Types Packs/Day Years Used Date Smoking Tobacco: Former Cigarettes 2 30 1 959 - 1989 Smokeless Tobacco: Former Alcohol Use Standard Drinks/Week Comments No 0 (1 standard drink = 0.6 oz pur e alcohol) Sexually Active Control Partners Comments Not Currently Sex and Gender Information Value Date Recorded Sex Assigned at Not on file Legal Sex Male 12:15 AM CDT Gender Identity Not on file Sexual Orientation Not on file COVID-19 Exposure Response Date Recorded In the last month, have you been in contact with someone who was confirmed or suspected to have Coronavirus / COVID-19? No / Unsure 12/15/2020 10:20 AM CDT documented as of this encounter Plan of Treatment Not on file documented as of this encounter Visit Diagnoses Not on filedocumented in this encounter Care Teams Carbon Sequestration Plant Engineer Relationship Specialty Start Date End Date Dion Esquivel MD [address] [place] [address] PCP - General Internal Medicine 07/26/17 documented as of this encounter
--- OUTSIDE RECORDS SUMMARY | 2025-05-07 16:09 | XMS_ITS | Clinical Summary ---
Author Organization [facility] Address [address] [place] [address] Care Team Providers Care Equipment Operat0R Name Role Phone Unavailable Primary Care Provider Unavailabl e Source Comments [facility],non-owned Affiliates and Associated Physician Practices is amultiple site organization consisting of ambulatory clinics and hospital sitesin [place], [place], [place] and [place]. This disclosure is being madepursuant to the Care Everywhere program and may not contain all information available regarding this patient. Last updated 18.[facility] [employer] Allergies Active Allergy Reactions Criticality Noted Date Comments Penicillins Urticaria High 02/08/2012 Medications * Be aware that medications may not be up to date on this document. Alwaysverify current medications with the patient. lisinopril-hydro chlorothiazide (PRINZIDE; ZESTORETIC) 20-25 MG tablet Take 1 Tab by mouth once daily. Active theophylline CR 12 hr (THEOPHYLLINE CR 12HR) 300 MG tablet Take 300 mg by mouth 2 times daily. Active predniSONE (DELTASONE) 20 MG tablet Take 20 mg by mouth once daily. Active tiotropium (SPIRIVA) 18 MCG inhalation capsule Inhale 1 Cap by mouth once daily. Active albuterol HFA (PROVENTIL;TAMIE NICOLE;PROAIR) 108 (90 BASE) MCG/ACT inhaler Inhale 1-2 Puffs by mouth every 4 hours as needed. Active fluticasone-salm eterol (ADVAIR) 250-50 MCG/DOSE inhaler Inhale 1 Puff by mouth 2 times daily. Active levothyroxine (SYNTHROID) 50 MCG tablet Take 50 mcg by mouth daily before breakfast. Active cyclobenzaprine (FLEXERIL) 10 MG tabletIndication s:Muscle Spasm Take 10 mg by mouth 3 times daily as needed. Indications : Muscle Spasm Active aspirin 81 MG chew tablet Take 81 mg by mouth once daily. 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 Gender Identity Not on file Sexual Orientation Not on file Last Filed Vital Signs Vital Sign Reading Time Taken Comments Blood Pressure 132/71 02/08/2012 12:45 PM CDT Pulse 68 02/08/2012 12:45 PM CDT Temperature 36.8 C (98.2 F) 02/08/2012 12:08 PM CDT Respiratory Rate 16 02/08/2012 12:45 PM CDT Oxygen Saturation 93% 02/08/2012 12:45 PM CDT Inhaled Oxygen Concentration - - Weight 97.1 kg (214 lb) 02/08/2012 9:31 AM CDT Height 162.6 cm (5' 4) 02/08/2012 9:31 AM CDT Body Mass Index 36.73 02/08/2012 9:31 AM CDT Plan of Treatment Health Maintenance Due Date Last Done Comments DTAP/TDAP/TD VACCINES (1 - Tdap) 1960 PNEUMOCOCCAL VACCINE 50+ (1 of 1 - PCV) 1991 ZOSTER VACCINE (1 of 2) 1991 Respiratory Syncytial Virus (RSV) Vaccine Pt: or over 60 yrs (1 - 1-dose 75+ series) 2016 DEPRESSION SCREENING 08/14/2024 COVID-19 VACCINE (1 - 2023-2 5 season) 2025 INFLUENZA VACCINE (#1) 2025 HEPATITIS B VACCINE Aged Out No longe r eligible based on patient's age to complete this topic HIB VACCINE Aged Out No longer eligi ble based on patient's age to complete this topic HPV VACCINE Aged Out No longer eligi ble based on patient's age to complete this topic MENINGOCOCCAL (Group B) VACC INE SHARED DECISION-MAKING Aged Out No longer eligibl e based on patient's age to complete this topic MENINGOCOCCAL GROUPS A/C/Y/W VACCINE Aged Out No longer eligible b ased on patient's age to complete this topic Insurance [facility] [place] [address]
--- OUTSIDE RECORDS SUMMARY | 2025-05-07 16:09 | XMS_ITS | Clinical Summary ---
Author Organization [facility] Address [address] [place] [address] Phone Care Team Providers Care Patient Escort Name Role Phone Dion Esquivel MD Primary Care Provider [phone] Allergies Active Allergy Reactions Criticality Noted Date Comments Penicillins Hives,Rash High 02/08/2012 Reaction: RASH/HIVES, , Reaction: RASH, HIVES, Medications albuterol (PROVENTIL HFA, VENTOLIN HFA) 108 (90 Base) MCG/ACT Aerosol Solution take by inhalation. Active aspirin 81 MG Chewable Tablet Take by mouth. Active Benzonatate 200 MG Capsule Take by mouth every 4 hours as needed. 7 Active Blood Glucose Calibration (OT ULTRA/FASTTK CNTRL SOLN) Solution to be used for glucometer. 5 Active Glucose Blood (ONE TOUCH ULTRA TEST) Strip test blood sugar twice daily 250.00 5 Active Blood Glucose Monitoring Suppl (ONE TOUCH ULTRA SYSTEM KIT) w/Device Kit test blood sugar twice daily 250.00 5 Active clotrimazole-be tamethasone (LOTRISONE) 1-0.05 % Cream 7 Active LEVEMIR FLEXTOUCH 100 UNIT/ML Solution Pen-injector 25 Units by Subcutaneous route every morning. 7 Active ONE TOUCH ULTRASOFT LANCETS Misc test blodd sugar twice daily 250.00 5 Active levothyroxine (SYNTHROID) 50 MCG Tablet Take by mouth. Acti ve lisinopril (PRINIVIL, ZESTRIL) 10 MG Tablet 7 Active metFORMIN (GLUCOPHAGE) 500 MG Tablet TAKE ONE TABLET BY MOUTH TWICE DAILY (ONCE IN THE MORNING AND ONCE IN THE EVENING) 6 Active Insulin Pen Needle (EXEL COMFORT POINT PEN NEEDLE) 31G X 6 MM Misc Use as directed with Levemir Flextouch 7 Active theophylline CR, 12 hour, (THEODUR) 300 MG TABLET SR 12 HR 7 Active Cyanocobalamin (B-12 PO) Take 1,000 mg by mouth daily. Active Mirabegron ER (Myrbetriq) 50 MG TABLET SR 24 HR Take by mouth. Activ e Fluticasone-Ume clidin-Vilant (Trelegy Ellipta) 100-62.5-25 MCG/INH AEROSOL POWDER, BREATH ACTIVATED take 1 Puff by inhalation daily. Active carvedilol (Coreg) 3.125 MG Tablet Take 3.125 mg by mouth 2 times daily. Active Albuterol Sulfate (PROAIR RESPICLICK IN) take 2 Puffs by inhalation every 6 hours as needed. Active HYDROcodone-david taminophen (NORCO) 5-325 MG Tablet Take 1-2 Tablets by mouth every 4 hours as needed for Mild or more severe pain. 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 from 05/01/2020:Stage 0a(cTa, cN0, cM0) - Signed by Darline Chavez MD on 05/14/2020 Hypertension Type 2 diabetes mellitus, wi th long-term current use of insulin COPD (chronic obstructive pulmonary disease) Bladder cancer Family History Medical History Relation Name Comments Heart Attack Brother Cancer Father LUNG Heart Attack Mother Relation Name Status Comments Brother Father Mother Social History Tobacco Use Types Packs/Day Years Used Date Smoking Tobacco: Former Cigarettes 2 30 1 9 - 1988 Smokeless Tobacco: Former Tobacco Cessation:Counseling Given: No Alcohol Use Standard Drinks/Week Comments No 0 [...] Sign Reading Time Taken Comments Blood Pressure 142/68 01/06/2021 3:37 PM CDT Pulse 62 01/06/2021 3:37 PM CDT Temperature 35.8 C (96.5 F) 01/06/2021 3:37 PM CDT Respiratory Rate 16 01/06/2021 3:37 PM CDT Oxygen Saturation 97% 01/06/2021 3:37 PM CDT Inhaled Oxygen Concentration - - Weight 88.4 kg (194 lb 12.8 oz) 01/06/2021 3:37 PM CDT Height 162.6 cm (5' 4) 01/06/2021 3:37 PM CDT Body Mass Index 33.44 01/06/2021 3:37 PM CDT Plan of Treatment Health Maintenance Due Date Last Done Comments Diabetes: Eye Exam 1941 Diabetes: Foot Exam 1941 Hepatitis C Virus (HCV) Screening 1940 TdaP Immunization 1941 Zoster Immunization (1 of 2) 04/13/2015 02/16/2015 Respiratory Syncytial Virus (RSV) Immunization (Adult) (1 - 1-dose 75+ series) 2016 Diabetes: Hemoglobin A1c 06/01/202111/30/ 021, 08/18/2020, 04/02/2020 Diabetes: Nephropathy Screening 09/01/2021 09/01/2020, 08/31/2020, 08/30/2020, Additional history exists Influenza Immunization (#1) 2025 12/0 04/2020, 07/18/2019, 06/02/2018, Additional history exists SARS-COV-2 Immunization (2024- season) 2025 07/24/2021, 11/07/2020, 10/10/2020 Pneumococcal Immunization (50+ years) Completed 06/25/2016, 03/31/2015 Pneumococcal Immunization Combined Discontinued 06/25/2016, 03/31/2015 Hepatitis B Immunization Aged Out No longer eligible based on patient's age to complete this topic Human Papillomavirus (HPV) Immunization Aged Out No longer eligible based on patient's age to complete this topic Meningococcal Immunization (ACWY) Aged Out No longer eligible based on patient's age to complete this topic Rotavirus Immunization Aged Out No lo nger eligible based on patient's age to complete this topic Procedures Procedure Name Priority Date/Time Associated Diagnosis Comments CMP (COMPREHENSIVE METABOLIC PANEL) Routine 09/01/2020 4:27 AM JOB SITE SUPERVISOR from Last 3 Months or Most Recently Relevant to Health Maintenance Results * (ABNORMAL) Comprehensive Metabolic Panel (CMP) (09/01/2020 4:27 AM JOB SITE SUPERVISOR) SODIUM 135(L) 136 - 144 mmol/L 09/01/2020 6:09 AM [facility] POTASSIUM 4.0 3.5 - 5.1 mmol/L 09/01/2020 6:09 AM JOB SITE SUPERVISOR [facility] CHLORIDE 101 100 - 110 mmol/L 09/01/2020 6:09 AM [facility] CO2, VENOUS 25 22 - 32 mmol/L 09/01/2020 6:09 AM JOB SITE SUPERVISOR [facility] ANION GAP 13.0 8.0 - 20.0 mmol/L 09/01/2020 6:09 AM [facility] GLUCOSE 102(H) 70 - 99 mg/dL 09/01/2020 6:09 AM [facility] BUN 23 8 - 23 mg/dL 09/01/2020 6:09 AM [facility] CREATININE, BLOOD 1.30 0.80 - 1.30 mg/dL 09/01/2020 6:09 AM [facility] BUN/CREATININE RATIO 18 12 - 20 ratio 09/01/2020 6:09 AM [facility] TOTAL PROTEIN 6.4 6.0 - 8.3 g/dL 09/01/2020 6:09 AM [facility] ALBUMIN 3.3(L) 3.5 - 5.2 g/dL 09/01/2020 6:09 AM [facility] Comment: The colormetric methods used for the determination of Albumin may lead to falsely elevated test results in patients suffering from renal failure or insufficiency due to interference with other proteins. A/G RATIO 1.1 1.0 - 2.0 09/01/2020 6:09 AM [facility] CALCIUM 9.0 8.9 - 10.3 mg/dL 09/01/2020 6:09 AM [facility] T BILI 0.7 <=1.2 mg/dL 09/01/2020 6:09 AM [facility] SGOT (AST) 34 <=40 U/L 09/01/2020 6:09 AM [facility] SGPT (ALT) 40 <=41 U/L 09/01/2020 6:09 AM [facility] ALKALINE PHOSPHATASE 102 40 - 130 U/L 09/01/2020 6:09 AM [facility] GFR, EST. NONAFRICAN 53(L) >=60 09/01/2020 6:09 AM [facility] GFR, EST. >60 >=60 021 6:09 AM [facility] Comment: Creatinine Clearance is the preferred criteria for selecting drug dose adjustments in renally impaired patients. The GFR is provided as additional pertinent clinical information. GFR is reported in mL/min/1.73 sq m. Blood Venipuncture / Unknown 09/01/2020 4:27 AM JOB SITE SUPERVISOR 09/01/2020 5:23 AM JOB SITE SUPERVISOR us Nevaeh Mcqueen ECOMMERCE ANALYST, WARDROBE ASSISTANT CHEMISTRY ORDERABLES Final Result [facility] [place] [address] from Last 3 Months or Most Recently Relevant to Health Maintenance [facility] Advance Directives * Full Code (Latest Code Status on File) Date Activated Date Inactivated Comments 08/29/2020 1:53 AM 09/01/2020 3:00 PM CPR-Full Neil atment: FULL ARREST: Attempt Resuscitation/CPR wit intubation and mechanical ventilation. PRE-ARREST: Use entire range of life support measures to stabilize the patient. Care Teams Patient Escort Relationship Specialty Start Date End [place] [address] PCP - General Internal Medicine 07/26/17
[2025-05-07 16:15] VITALS: BP 141/60; PULSE 66; RESP 22; TEMP 37.1; O2SAT 97
--- NOTE | 2025-05-07 16:26 | ED_ITS ---
HPI - URI/Sore Throat General Chief Complaint: Upper Respiratory Infection Stated Complaint: Dizziness/Fatigue/Cough/Runny Nose Time Seen by Provider: 05/07/25 16:26 Source: patient Mode of arrival: ambulatory Limitations: no limitations History of Present Illness HPI Narrative: 84 yo F presents with c/o congestion, sinus pressure, fatigue, cough for 2 days. feel like im getting the flu. Intermittently SOB with exertion. No CP. Afebrile. Has not taken any meds to treat symptoms. Denies N/v/D. All systems reviewed and negative except as noted above. Related Data Home Medications ?Medication ?Instructions ?Recorded ?Confirmed ?Last Taken ?Type atorvastatin 20 mg tablet mg 05/07/25 Unknown History carvedilol 3.125 mg tablet mg 05/07/25 Unknown Histor y empagliflozin 10 mg tablet mg 05/07/25 Unknown Histor y (Jardiance) levothyroxine 50 mcg tablet mcg 05/07/25 Unknown Hist ory lisinopril 10 mg tablet mg 05/07/25 Unknown History Allergies Allergy/AdvReac Type Severity Reaction Status Date / Time No Known Allergies Allergy Verified 05/07/25 16:04 [facility] Comments At time of signature, agree with nursing past medical, surgical, social and family history. There is no relevant family history pertinent to the presenting complaint. Exam Narrative: GENERAL: This is a well-nourished, well-developed patient, in no apparent distress. HEAD: normocephalic, atraumatic. EYES: PERRL. Sclera clear/white. Vision is grossly intact. EARS: External ears normal, auditory canals clear and without drainage, TMs normal without perforation. Hearing grossly intact. NOSE: External nose normal with clear nasal drainage THROAT: Mucous membranes moist, erythematous without swelling or exudates NECK: Neck supple, non-tender without lymphadenopathy, masses or thyromegaly. CARDIOVASCULAR: Regular rate and rhythm without murmurs, gallops, or rubs. RESPIRATORY: decreased to lower lung barillas otherwise clear. Breath sounds eq ual bilaterally. No wheezes, rales, or rhonchi. SKIN: warm, Dry, intact with no suspicious lesions or rash, good texture and turgor. NEURO: awake, alert, and oriented to person, place and time. There were no obvious focal neurologic abnormalities. EXTREMITIES: No joint tenderness, effusion, or edema noted. No calf tenderness. Negative Homans sign bilaterally. BACK: Nontender without deformity. No CVA tenderness. Course Course Level of Care: Express Care Visit Vital Signs Vital signs: Vital Signs Temperature 37.1 C 05/07/25 16:15 Pulse Rate 66 05/07/25 16:15 Respiratory Rate 22 H 05/07/25 16:15 Blood Pressure 141/60 H 05/07/25 16:15 Pulse Oximetry 97 05/07/25 16:15 Oxygen Delivery Room Air 05/07/25 16:15 Temperature 37.1 C 05/07/25 16:15 Pulse Rate 66 05/07/25 16:15 Respiratory Rate 22 H 05/07/25 16:15 Blood Pressure 141/60 H 05/07/25 16:15 Pulse Oximetry 97 05/07/25 16:15 Oxygen Delivery Room Air 05/07/25 16:15 reviewed MDM - URI/Sore Throat MDM Narrative Medical decision making narrative: covid and influenza test negative. x-ray neg for pneumonia. incidental finding noduel R uppper lung. Recommend follow up with PCP for outpatient CT scan. pt is well appearing. nontoxic. no SOB at this time. States i just feel like i have the flu. Pt here with granddaughter and she is going to take him to get sinus meds. Will go to ER for any worsening of symptoms. Differential Diagnosis Differential diagnosis: Likely upper respiratory infection, sinusitis, viral infection, bronchitis and influenza Lab Data Labs: Lab Results 05/07/25 Range/Units 16:29 POC Influenza A Ag Negative (Negative) POC Influenza B Ag Negative (Negative) POC SARS CoV-2 Ag Negative (Negative) Discharge Plan Discharge Clinical Impression: Acute viral sinusitis Patient Disposition: Home Condition: Stable Instructions: Antibiotic Form, Sinusitis (ED) Additional Instructions: Your covid and influenza test was negative. Your chest x-ray was negative for pneumonia. It did show a nodule that needs to be followed up with an out patient CT scan. Talk with your primary care physician regarding this. Take an over the counter medication to treat your symptoms such as Dayquil/Nyquil Cold and Sinus. Drink at least 64 ounces of water a day. Go to the ER for any worsening of symptoms. Patient Language: Estonian Prescriptions: No Action atorvastatin 20 mg tablet carvedilol 3.125 mg tablet levothyroxine 50 mcg tablet lisinopril 10 mg tablet Jardiance 10 mg tablet Follow-up/Referrals: Harms,Dion Leyva M.D. [Primary Care Provider] Time of Disposition: 17:19
[2025-05-07 16:34] LABS: EDCOVIDSCREEN Negative (Negative); EDINFLUASCREEN Negative (Negative); EDINFLUBSCREEN Negative (Negative)
== END 2025-05-07 17:24 | disposition home or self-care (01) ==
PROVIDERS: Emergency Provider Nurse Practitioner Family; PCP Family Medicine
DX: J01.90 Acute sinusitis, unspecified (principal); Z20.822 Contact with and (suspected) exposure to COVID-19; I10 Essential (primary) hypertension; E11.9 Type 2 diabetes mellitus without complications; Z79.84 Long term (current) use of oral hypoglycemic drugs; E03.9 Hypothyroidism, unspecified; E78.00 Pure hypercholesterolemia, unspecified
CPT/HCPCS: 71046; 87426; 87804; 99203; G0463